=== PATIENT | female | born 1960 | race Caucasian/White ===

== ENCOUNTER 2018-11-16 23:33 | Emergency (ER) | payer SELFPAY ==
[~2018-11-16] VITALS: Ht 172.7 cm; Wt 77.1 kg
--- NOTE | 2018-11-16 23:59 | NUR ---
PT PRESENTED TO THE ER WITH A C/O RT SIDED RIB PAIN X 2 DAYS. PT DENIES TRAUMA.
--- NOTE | 2018-11-17 | NUR ---
DR EDWARDS IS AT THE BEDSIDE EVALUATING THE PT.
[2018-11-17] MEDS ORDERED: KETOROLAC TROMETHAMINE INJ 30 MG/ML VIAL IV ONE (00:30)
[2018-11-17 00:49] LABS: APPEARANCE,URINE Clear (CLEAR); BILIRUBIN,URINE Negative (NEGATIVE); BLOOD, URINE Negative Ery/uL (NEGATIVE); COLOR,URINE Yellow (YELLOW); KETONES,URINE Negative (NEGATIVE); LEUKOCYTE ESTERASE ,URINE Moderate (NEGATIVE); NITRITE, URINE Negative (NEGATIVE); PH,URINE 5.5 (5.0-8.0); PROTEIN,URINE Negative (NEGATIVE); UGLUCOSE Negative (NEGATIVE); UROBILINOGEN,URINE 0.2 EU/dL (0.2)
[2018-11-17] MEDS ORDERED: KETOROLAC TROMETHAMINE 15 MG/ML VIAL ONE (00:49)
--- NOTE | 2018-11-17 00:59 | NUR ---
XRAY DONE AT THE BEDSIDE.
[2018-11-17 01:13] LABS: BASOPHILS # (AUTO) 0.1 /CMM (0.0-0.2); EOSINOPHILS % (AUTO) 3.4 % (0.0-6.0); HEMATOCRIT 41 % (33-45); MEAN CORPUSCULAR HGB CONC 34 g/dl (31.0-36.0); MEAN CORPUSCULAR VOLUME 89 fL (82-100); MONOCYTES # (AUTO) 0.4 /CMM (0.1-1.30); MONOCYTES % (AUTO) 5.5 % (2.0-12.0); NEUTROPHILS # (AUTO) 4.7 /CMM (1.8-8.9); NEUTROPHILS % (AUTO) 63.1 % (43.0-81.0); PLATELET COUNT (AUTO) 208 /CMM (150-450); RED BLOOD CELL COUNT(AUTO) 4.57 MIL/uL (4.0-5.2); WHITE BLOOD COUNT (AUTO) 7.5 K/uL (4.3-11.0)
[2018-11-17 01:22] LABS: CALCIUM, SERUM 9.1 mg/dL (8.5-10.1); CREATININE 0.9 mg/dL (0.6-1.3); POTASSIUM 3.5 mmol/L (3.5-5.1)
[2018-11-17 01:26] LABS: ALBUMIN 3.5 g/dL (3.4-5.0); BILIRUBIN,DIRECT 0.2 mg/dL (0.0-0.2); BILIRUBIN,TOTAL 0.9 mg/dL (0.2-1.0); TOTAL PROTEIN, SERUM 6.9 g/dL (6.4-8.2)
[2018-11-17 01:34] LABS: BACTERIA,URINE Few /HPF (None Seen); SQUAMOUS EPITHELIAL CELL,UR Few /HPF (None Seen); WBC,URINE 51-80 /HPF (0-3)
--- NOTE | 2018-11-17 01:36 | NUR ---
ARMAAN, US TECH, FINISHED GALLBLADDER US.
--- NOTE | 2018-11-17 02:07 | NUR ---
IV removed. Catheter intact and site benign. Pressure and 4x4 applied to site. No bleeding noted.Patient discharged to home in stable condition. Written and verbal after care instructions given. Patient verbalizes understanding of instruction. PT AMBULATED OUT WITH A STEADY GAIT. VSS.
[2018-11-17 02:08] VITALS: BP 139/89
== END 2018-11-17 02:09 | disposition home or self-care (01) ==
LOC: ER 23:40
DX: R10.11 Right upper quadrant pain (principal); F17.200 Nicotine dependence, unspecified, uncomplicated; Z98.890 Other specified postprocedural states
CPT/HCPCS: 36415; 71045; 76705; 80048; 80076; 81001; 85025; 96374; 99284; J1885; 81000-TC; 87086-TC

== ENCOUNTER 2020-03-25 09:33 | Emergency (ER) | payer SELFPAY ==
[~2020-03-25] VITALS: Ht 175.3 cm; Wt 77.1 kg
--- NOTE | 2020-03-25 09:41 | NUR ---
patient came in to the er c/o sorethroat and cough x 1 day. On room air, breathing evenly and unlabored. Kept comfortable, will continue to monitor accordingly.
[2020-03-25] MEDS ORDERED: AMOXICILLIN TRIHYDRATE 250 MG CAPSULE ONE (10:17)
[2020-03-25] MEDS ORDERED: IBUPROFEN 600 MG TABLET ONE (10:18)
[2020-03-25 10:22] VITALS: BP 145/81
--- NOTE | 2020-03-25 10:23 | NUR ---
Patient discharged to home in stable condition. Written and verbal after care instructions given. Patient verbalizes understanding of instruction.
[2020-03-25] MEDS ORDERED: AMOXICILLIN TRIHYDRATE 500 MG CAPSULE PO ONE (10:30)
[2020-03-25] MEDS ORDERED: IBUPROFEN 600 MG TABLET PO ONE (10:30)
== END 2020-03-25 10:23 | disposition home or self-care (01) ==
LOC: ER 09:37
DX: J03.90 Acute tonsillitis, unspecified (principal); Z98.890 Other specified postprocedural states